=== PATIENT | female | born 1950 | race Caucasian/White ===

== ENCOUNTER 2021-12-05 13:31 | Observation (INO) ==
[2021-12-05] MEDS ORDERED: Iopamidol - 370 500 ML MLS IVP ONE (14:31)
[2021-12-05] MEDS ORDERED: Morphine Sulfate 2 MG/ML SYRINGE IVP ONE (14:32)
[2021-12-05 14:48] LABS: Basophils % 0.4 %; Eosinophils # 0.1 K/mcL (0.0-0.6); Eosinophils % 1.5 %; Hematocrit 42.6 % (35.3-44.9); Hemoglobin 14.1 g/dL (11.5-15.4); Immature Granulocytes % 0.4 % (0-4); Lymphocytes # 2.8 K/mcL (0.6-4.6); Lymphocytes % 35.2 %; Mean Corpuscular HGB Conc 33.1 g/dL (31.6-35.5); Mean Corpuscular Hemoglobin 30.6 pg (28.0-33.3); Mean Corpuscular Volume 92.4 fL (83.0-100.0); Mean Platelet Volume 8.5 fL (9.4-12.4); Monocytes # 0.7 K/mcL (0.0-1.3); Neutrophils # 4.2 K/mcL (1.6-8.9); Platelet Count 243 K/mcL (140-400); Red Blood Count 4.61 M/mcL (3.82-4.97); Red Cell Distribution Width 11.9 % (11.5-14.5); Segmented Neutrophils % 53.5 %; White Blood Count 7.8 K/mcL (4.3-11.1)
[2021-12-05 15:05] LABS: Prothrombin Time 11.3 Seconds (9.4-12.1)
[2021-12-05 15:13] LABS: BUN/Creatinine Ratio 25 (6-26); Blood Urea Nitrogen 18 mg/dL (8-23); Calcium 9.4 mg/dL (8.6-10.3); Carbon Dioxide 29 mEq/L (23-29); Chloride 104 mEq/L (98-107); Glucose 89 mg/dL (70-105); Osmolality,Calculated 285 (280-300); Potassium 3.8 mEq/L (3.5-5.1); Sodium 137 mEq/L (136-145)
[2021-12-05 16:32] LABS: Troponin I < 0.03 ng/mL (< 0.04)
[2021-12-05] MEDS ORDERED: Aspirin 81 MG TAB.CHEW PO ONE (16:41)
[2021-12-05] MEDS ORDERED: Nitroglycerin 0.4 MG TAB.SUBL SL PRN (17:58)
[2021-12-06 04:22] LABS: Basophils % 0.2 %; Eosinophils # 0.2 K/mcL (0.0-0.6); Eosinophils % 1.8 %; Hematocrit 39.4 % (35.3-44.9); Hemoglobin 13.5 g/dL (11.5-15.4); Immature Granulocytes % 0.4 % (0-4); Lymphocytes % 35.1 %; Mean Corpuscular HGB Conc 34.3 g/dL (31.6-35.5); Mean Corpuscular Hemoglobin 31.3 pg (28.0-33.3); Mean Corpuscular Volume 91.4 fL (83.0-100.0); Mean Platelet Volume 8.6 fL (9.4-12.4); Monocytes # 0.6 K/mcL (0.0-1.3); Monocytes % 7.5 %; Neutrophils # 4.7 K/mcL (1.6-8.9); Platelet Count 214 K/mcL (140-400); Red Blood Count 4.31 M/mcL (3.82-4.97); Red Cell Distribution Width 11.8 % (11.5-14.5); White Blood Count 8.5 K/mcL (4.3-11.1)
[2021-12-06 04:34] LABS: BUN/Creatinine Ratio 21 (6-26); Blood Urea Nitrogen 14 mg/dL (8-23); Calcium 9.1 mg/dL (8.6-10.3); Carbon Dioxide 26 mEq/L (23-29); Chloride 106 mEq/L (98-107); Chol/HDL Ratio 4.9 (0-4.9); Cholesterol 197 mg/dL (< 200); Glucose 96 mg/dL (70-105); HDL Cholesterol 40 mg/dL (40-59); LDL Cholesterol,Calculated 125 mg/dL (< 100); Osmolality,Calculated 286 (280-300); Potassium 4.1 mEq/L (3.5-5.1); Sodium 138 mEq/L (136-145); Triglycerides 160 mg/dL (< 150)
[2021-12-06 04:35] LABS: Troponin I < 0.03 ng/mL (< 0.04)
[2021-12-06] MEDS ORDERED: Aspirin 81 MG TAB.CHEW PO SCH (09:00)
[2021-12-06] MEDS ORDERED: Regadenoson 0.4 MG/5 ML SYRINGE IVP ONE (09:44)
[2021-12-06 14:12] VITALS: BP 134/79; PULSE 77; TEMP 97.9; O2SAT 92
== END 2021-12-06 15:02 | disposition home or self-care (01) ==
LOC: 3BNU 13:31 → EMEROOARM 13:31 → SUATTDRO 17:06 → 3BNU 17:30
PROVIDERS: ADMIT Hospitalist; ATTEND Registered Nurse